=== PATIENT | female | born 1955 | race African-American/Black ===

== ENCOUNTER 2017-05-31 16:25 | Inpatient (IN) | payer OTHER ==
[2017-05-31] MEDS ORDERED: Ibuprofen 800 MG TAB ONE (18:13)
[2017-05-31] MEDS ORDERED: Lidocaine 1% PF 5 ML VIAL ONE (18:13)
[2017-05-31] MEDS ORDERED: cefTRIAXone\\ROCEPHIN 1 GM VIAL ONE (18:13)
[2017-05-31] MEDS ORDERED: Acetaminophen/Codeine 30-300mg Tablet ONE (18:13)
--- NOTE | 2017-05-31 18:17 | RAD ---
TWO VIEWS CHEST 05/31/17 PROVIDED CLINICAL HISTORY: Cough. FINDINGS: Comparison 01/30/13. The cardiac silhouette is mildly enlarged. There is air space disease in the right middle lobe compat ible with pneumonia. The lungs appear otherwise clear. No pleural fluid or pneumothorax apparent. Deg enerative changes are seen involving the spine. IMPRESSION: Right middle lobe air space disease compatible with pneumonia in the appropriate clinical context. Ra diographic followup after treatment is recommended to evaluate for resolution. POS: [facility]
[2017-05-31 18:39] LABS: #Basophils 0.1 thou/uL (0.0-0.2); #Eosinphils 0.2 thou/uL (0.0-0.7); #Lymphocytes 2.4 thou/uL (1.20-3.40); #Monocytes 1.3 thou/uL (0.11-0.59); %Basophils 0.9 % (0.0-1.0); %Eosinophils 1.9 % (0.0-10.0); %Lymphocytes 19.8 % (21.0-51.0); %Monocytes 10.8 % (0.0-10.0); Hematocrit 37.2 % (36.0-47.0); Mean Platelet Volume 7.5 fL (7.4-10.4); Red Blood Cell (RBC) Count 4.33 mill/uL (4.20-5.40); White Blood Cell (WBC) Count 12.1 thou/uL (4.8-10.8)
[2017-05-31 18:51] LABS: Anion Gap 17 mmol/L (10-20); BUN (Urea Nitrogen) 17 mg/dL (9.8-20.1); Calc. Creatinine Clearance 0 mL/min (70-130); Calcium 10.1 mg/dL (7.8-10.44); Carbon Dioxide 27 mmol/L (23-31); Chloride 103 mmol/L (98-107); Estimated GFR-MDRD 86
[2017-05-31] MEDS ORDERED: Azithromycin 500 MG VIAL ONE (20:48)
[2017-05-31] MEDS ORDERED: methylPREDNISolone Sod Succ/PF 125 MG/2 ML VIAL ONE (20:48)
[2017-05-31] MEDS ORDERED: Budesonide 0.5 MG/2 ML NEB ONE (21:20)
[2017-05-31] MEDS ORDERED: Ondansetron ODT 4 MG TAB SL PRN (23:41)
[2017-05-31] MEDS ORDERED: Ondansetron HCl/PF 4 MG/2 ML Vial IVP PRN (23:41)
[2017-05-31] MEDS ORDERED: Sodium Chloride 0.9% 1,000 ML IV SCH (23:41)
[2017-05-31] MEDS ORDERED: HYDROcodone/Acetaminophen 5/325 mg Tablet PO PRN ×2 (23:41)
[2017-05-31] MEDS ORDERED: Acetaminophen 325 MG TAB PO PRN (23:41)
[2017-05-31] MEDS ORDERED: Albuterol Sulfate 2.5 mg/3 ml Neb NEB PRN (23:42)
[2017-05-31 23:47] VITALS: BMI 37.8
[2017-06-01] MEDS ORDERED: Dextrose 5% in Water 1,000 ML IV PRN (03:00)
[2017-06-01] MEDS ORDERED: Acetaminophen 325 MG TAB PO PRN (03:00)
[2017-06-01] MEDS ORDERED: Dextrose 50% Abboject 50 ML SYRINGE SLOW IVP PRN (03:00)
[2017-06-01] MEDS ORDERED: cefTRIAXone\\ROCEPHIN 1 GM in Sodium Chloride 0.9% 100 ML IVPB SCH (03:00)
[2017-06-01] MEDS ORDERED: Bisacodyl 5 MG TAB PO PRN (03:00)
--- NOTE | 2017-06-01 04:02 | HP ---
PRIMARY CARE PHYSICIAN: Rayna Madrid M.D. CHIEF COMPLAINT: Cough. HISTORY OF PRESENT ILLNESS: Ms. Esqueda is a pleasant 62-year-old lady who was seen at [facility] on 06/01/2017 following transfer from [facility]. She reports that about 5 days ago, she developed cough. She reports that the cough is nonproductive. She felt warm 2 days ago. She denies any nausea, vomiting or diarrhea. She denies any sick contac ts. She reports that she has been eating and drinking well. She denies any chest pain. She denies any shortness of breath. She denies any abdominal pain. REVIEW OF SYSTEMS: The following complete review of systems was negative, unless otherwise mentioned in the HPI or below: Constitutional: Weight loss or gain, sense of well-being, ability to conduct usual activities, exerc ise tolerance. Skin/Breast: Rash, itching, changes in hair growth or loss, nail changes, breast lumps, tenderness, swelling, nipple discharge. Eyes: Vision, double vision, tearing, blind spots, pain. ENT/Mouth: Headaches (location, time of onset, duration, precipitating factors), vertigo, lightheade dness, injury. Vision, double vision, tearing, blind spots, pain, nose bleeding, colds, obstruction, discharge, dental difficulties, gingival bleeding, dentures, neck stiffness, pain, tenderness, masses in thyroid or other areas. Cardiovascular: Precordial pain, substernal distress, palpitations, syncope, dyspnea on exertion, or thopnea, nocturnal paroxysmal dyspnea, edema, cyanosis, hypertension, heart murmurs, varicosities, ph lebitis, claudication. Respiratory: Pain, shortness of breath, wheezing, stridor, cough, hemoptysis, fever or night sweats. Gastrointestinal: Poor appetite, dysphagia, indigestion, abdominal pain, heartburn, eructation, naus ea, vomiting, hematemesis, jaundice, constipation, or diarrhea, abnormal stools (patricio-colored, tarry, bloody, greasy, foul smelling), flatulence, hemorrhoids, recent changes in bowel habits. Genitourinary: Urgency, frequency, dysuria, nocturia, hematuria, polyuria, oliguria, unusual (or kiran nge in) color of urine, stones, hesitancy, change in size of stream, dribbling, acute retention or in continence, libido, potency. Musculoskeletal: Pain, swelling, redness or heat of muscles or joints, limitation, of motion, muscul ar weakness, atrophy, cramps. Neurologic/Psychiatric: Convulsions, paralyses, tremor, incoordination, paresthesias, difficulties w ith memory of speech, sensory or motor disturbances, or muscular coordination (ataxia, tremor), emoti onal problems, anxiety, depression, previous psychiatric care, unusual perceptions, hallucinations. Allergy/Immunologic: Skin rash, anemia, bleeding tendency, polydipsia, polyuria, intolerance to heat or cold. PAST MEDICAL HISTORY: Significant for diabetes mellitus, hypertension, and dyslipidemia. PAST SURGICAL HISTORY: Significant for hysterectomy and lumpectomy. SOCIAL HISTORY: The patient denies tobacco use, alcohol use, or recreational drug use. FAMILY HISTORY: Significant for diabetes mellitus, hypertension, and heart disease. ALLERGIES: No known drug allergies. CURRENT MEDICATIONS: Include amlodipine 2.5 mg daily, losartan 25 mg daily, metformin 500 mg 2 times a day, glipizide 2.5 mg daily, and citalopram 10 mg daily. PHYSICAL EXAMINATION: GENERAL: On examination, Ms. Esqueda is awake and alert, not in acute distress. She is obese, with a BMI of 37.8 kilogram per square meter. VITAL SIGNS: She is afebrile. Blood pressure is 137/72. Pulse is 78. She is breathing at rate of 18 and saturating 95% on 2 liters of oxygen. EYES: No scleral icterus, no conjunctival pallor. ENT: Dry mucosal membranes, no oropharyngeal erythema or exudates. NECK: Supple, nontender, normal range of movement, trachea is midline. RESPIRATORY: Accessory muscles of breathing are not active. Chest wall movements are symmetric bila terally. She has bronchial breathing over the right middle lobe. CARDIOVASCULAR: S1 and S2 are heard, regular. Peripheral pulses palpable. No carotid bruit, no per icardial rub. ABDOMEN: Soft, nontender, bowel sounds heard, no hepatomegaly, no splenomegaly. NEUROLOGIC: Cranial nerves II-XII are intact, deep tendon reflexes are 2+. MUSCULOSKELETAL: Power is 5/5 in all 4 extremities. SKIN: No rashes or subcutaneous nodules. LYMPHATIC: No cervical lymphadenopathy. PSYCHIATRIC: Normal mood, normal affect, patient is oriented to person, place, and time. LABORATORY DATA: Ms. Esqueda's labs and investigations were reviewed. She had a chest x-ray, which showed right middle lobe infiltrate. She has leukocytosis with 12,100 white cells, of which 66.5% ar e neutrophils. Hemoglobin and platelet count are normal. Chem-7 is normal. Influenza screen is neg ative. ASSESSMENT AND PLAN: Ms. Esqueda is a pleasant 62-year-old lady who was seen at [facility] on 06/01/2017. Her problem list includes: 1. Acute hypoxic respiratory failure: Ms. Esqueda had oxygen saturation of 88% on room air at [facility]. This is most likely secondary to pneumonia. 2. Community-acquired pneumonia: We will treat Ms. Esqueda with ceftriaxone and azithromycin. 3. Diabetes mellitus. Start Accu-Cheks, insulin sliding scale. 4. Hypertension: Monitor vital signs, titrate antihypertensives as needed. Many thanks for allowing me to participate in your patient's care. Please feel free to contact me wi th any questions or concerns. LEVEL OF RISK: Moderate. LEVEL OF COMPLEXITY: Moderate.
[2017-06-01] MEDS: Sodium Chloride 0.9% 1,000 ML IV SCH ×4 (04:17→20:28)
[2017-06-01] MEDS ORDERED: methylPREDNISolone Sod Succ/PF 125 MG/2 ML VIAL IVP SCH (06:00)
[2017-06-01 06:37] LABS: Anion Gap 14 mmol/L (10-20); BUN (Urea Nitrogen) 18 mg/dL (9.8-20.1); Calc. Creatinine Clearance 112 mL/min (70-130); Calcium 9.7 mg/dL (7.8-10.44); Carbon Dioxide 23 mmol/L (23-31); Chloride 104 mmol/L (98-107); Estimated GFR-MDRD 86
[2017-06-01 06:42] LABS: Hematocrit 34.5 % (36.0-47.0); Mean Platelet Volume 8.1 fL (7.4-10.4); White Blood Cell (WBC) Count 10.2 thou/uL (4.8-10.8)
[2017-06-01] MEDS: Enoxaparin Sodium 40 MG/0.4 ML SYRINGE SC SCH (08:27)
[2017-06-01 08:49] LABS: Band 10 % (5-11); Neutrophil 83 % (42-75)
[2017-06-01] MEDS ORDERED: Lisinopril/Hydrochlorothiazide 20/25 mg Tablet PO SCH (11:00)
[2017-06-01] MEDS ORDERED: NIFEdipine XL 60 MG TAB PO SCH (11:00)
--- NOTE | 2017-06-01 11:05 | PDOC.PN ---
- Subjective Encounter Start Date: 06/01/17 Encounter Start Time: 08:45 Subjective: feels better, still has sob -: is unable to bring up sputum - Objective MAR Reviewed: Yes Vital Signs & Weight: Vital Signs (12 hours) Temp Pulse Resp BP Pulse Ox 06/01/17 08:21 96.6 F L 78 16 182/88 H 93 L 06/01/17 07:40 96.6 F L 78 16 06/01/17 05:10 96.4 F L 74 16 162/70 H 94 L 05/31/17 23:59 98.5 F 78 18 05/31/17 23:46 98.5 F 78 18 137/72 95 Weight Weight 220 lb I&O: 05/31/17 06/01/17 06/02/17 06:59 06:59 06:59 Intake Total 1999 Balance 1999 Result Diagrams: 06/01/17 05:33 06/01/17 05:33 Additional Labs: Accuchecks 06/01/17 05:55 POC Glucose 238 H Phys Exam - Physical Examination HEENT: PERRLA, moist MMs Neck: no JVD, supple Respiratory: no wheezing, no rales rhonchi+ Cardiovascular: RRR, no significant murmur Gastrointestinal: soft, non-tender, positive bowel sounds Musculoskeletal: no edema, pulses present Neurological: non-focal, moves all 4 limbs Psychiatric: A&O x 3 Dx/Plan (1) PNA (pneumonia) Code(s): J18.9 - PNEUMONIA, UNSPECIFIED ORGANISM Status: Acute Qualifiers: Pneumonia type: due to unspecified organism Laterality: right Lung location: middle lobe of lung Qualified Code(s): J18.1 - Lobar pneumonia, unspecified organism (2) HTN (hypertension) Code(s): I10 - ESSENTIAL (PRIMARY) HYPERTENSION Status: Acute Comment: uncontrolled (3) Obesity (BMI 30-39.9) Code(s): E66.9 - OBESITY, UNSPECIFIED Status: Chronic (4) Dyslipidemia Code(s): E78.5 - HYPERLIPIDEMIA, UNSPECIFIED Status: Chronic (5) Acute respiratory failure with hypoxia Code(s): J96.01 - ACUTE RESPIRATORY FAILURE WITH HYPOXIA Status: Acute Comment: on nasal canula, resolving (6) DM type 2 (diabetes mellitus, type 2) Status: Chronic Qualifiers: Diabetes mellitus complication status: with unspecified complications Diabetes mellitus laborer marine terminal insulin use: without laborer marine terminal use Qualified Code( s): E11.8 - Type 2 diabetes mellitus with unspecified complications - Plan on azithro and ceftriaxone -: nebs, gentle iv hydration -: home meds to chart, will start procardia and lisino/hctz for now -: to amb in hallway as tolerated -: change status to inpt * . Review of Systems - Medications/Allergies Allergies/Adverse Reactions: Allergies Allergy/AdvReac Type Severity Reaction Status Date / Time No Known Allergies Allergy Verified 01/25/13 23:35 Medications: Current Medications Acetaminophen (Tylenol) 650 mg PO Q4H PRN PRN Reason: Headache/Fever or Pain Albuterol Sulfate (Ventolin) 2.5 mg NEB [id number] [facility] Aspirin (Ecotrin) 325 mg PO DAILY JOHN Bisacodyl (Dulcolax) 10 mg PO DAILYPRN PRN PRN Reason: Constipation Dextrose/Water (Dextrose 50%) 25 gm SLOW IVP PRN PRN PRN Reason: Hypoglycemia Enoxaparin Sodium (Lovenox) 40 mg SC 0900 [facility] Last Admin: 06/01/17 08:27 Dose: 40 mg Glucagon (Glucagon) 1 mg IM PRN PRN PRN Reason: Hypoglycemia Lisinopril/HCTZ (Prinizide 20-25) 1 tab PO DAILY [facility] Lisinopril/HCTZ (Prinizide 20-25) 1 tab PO ONE STA Stop: 06/01/17 11:01 Azithromycin 500 mg/ Sodium (Chloride) 250 mls @ 250 mls/hr IVPB Q24HR [facility] Dextrose/Water (D5w) 1,000 mls @ 0 mls/hr IV .Q0M PRN; As Directed PRN Reason: Hypoglycemia Sodium Chloride (Normal Saline 0.9%) 1,000 mls @ 75 mls/hr IV .[id number] [facility] Last Admin: 06/01/17 05:33 Dose: 1,000 mls Ceftriaxone Sodium 1 gm/ (Syringe 0.4 ml/ Sterile Water) 10 mls @ 120 mls/hr SLOW IVP 1800 JOHN Insulin Human Lispro (Humalog) 0 units SC .MILD SLIDING SCALE PRN PRN Reason: Mild Correctional Scale Nifedipine (Procardia Xl) 60 mg PO DAILY JOHN Nifedipine (Procardia Xl) 60 mg PO ONE STA Stop: 06/01/17 11:01 Non-Formulary Medication (Metformin Hcl) 500 mg PO DAILY [facility]
[2017-06-01] MEDS: HumaLOG 300 UNITS/3 ML VIAL SC PRN ×2 (11:49→17:21)
[2017-06-01] MEDS: Albuterol Sulfate 2.5 mg/3 ml Neb NEB SCH ×2 (13:31→18:18)
[2017-06-01] MEDS ORDERED: Insulin Detemir 100 UNITS/ML 15 UNITS in Pre-Filled Syringe 1 EACH SC SCH (14:54)
[2017-06-01] MEDS: cefTRIAXone\\ROCEPHIN 1 GM, Syringe 0.4 ML in Sterile Water 9.6 ML SLOW IVP SCH (17:47)
[2017-06-01] MEDS: Azithromycin 500 MG in Sodium Chloride 0.9% 250 ML 250 ML IVPB SCH (20:28)
[2017-06-02] MEDS: Albuterol Sulfate 2.5 mg/3 ml Neb NEB SCH ×4 (00:34→18:29)
[2017-06-02 05:45] LABS: #Monocytes 1.2 thou/uL (0.11-0.59); #Neutrophils 11.7 thou/uL (1.40-6.50); %Basophils 0.1 % (0.0-1.0); %Eosinophils 0.3 % (0.0-10.0); %Lymphocytes 13.2 % (21.0-51.0); %Monocytes 8.2 % (0.0-10.0); Hematocrit 33.6 % (36.0-47.0); Mean Platelet Volume 7.9 fL (7.4-10.4)
[2017-06-02 06:03] LABS: Anion Gap 12 mmol/L (10-20); BUN (Urea Nitrogen) 17 mg/dL (9.8-20.1); Calc. Creatinine Clearance 128 mL/min (70-130); Calcium 9.3 mg/dL (7.8-10.44); Carbon Dioxide 25 mmol/L (23-31); Chloride 106 mmol/L (98-107); Estimated GFR-MDRD Greater than 90
[2017-06-02] MEDS ORDERED: metFORMIN 500 MG TAB PO SCH (08:00)
[2017-06-02] MEDS: Enoxaparin Sodium 40 MG/0.4 ML SYRINGE SC SCH (08:16)
[2017-06-02] MEDS ORDERED: Losartan Potassium 25 MG TAB PO SCH ×2 (09:00)
[2017-06-02] MEDS ORDERED: NIFEdipine XL 60 MG TAB PO SCH (09:00)
[2017-06-02] MEDS ORDERED: Fluticasone Propionate Nasal Spray 16 gm Bottle NASAL SCH (09:00)
[2017-06-02] MEDS ORDERED: Lisinopril/Hydrochlorothiazide 20/25 mg Tablet PO SCH (09:00)
[2017-06-02] MEDS ORDERED: Aspirin 325 mg Enteric Coated Tablet PO SCH (09:00)
--- NOTE | 2017-06-02 13:01 | PDOC.PN ---
- Subjective Encounter Start Date: 06/02/17 Encounter Start Time: 09:40 Subjective: feels better -: no sob -: is amb in room - Objective MAR Reviewed: Yes Vital Signs & Weight: Vital Signs (12 hours) Temp Pulse Resp BP BP Pulse Ox 06/02/17 12:50 76 14 95 06/02/17 09:16 97.6 F 69 16 143/80 H 92 L 06/02/17 08:15 73 143/80 H 06/02/17 08:00 97.6 F 69 16 143/80 H 92 L 06/02/17 06:43 73 12 99 06/02/17 03:31 97.9 F 70 16 132/65 96 Weight Weight 220 lb I&O: 06/01/17 06/02/17 06/03/17 06:59 06:59 06:59 Intake Total 1999 3599 Balance 1999 3599 Result Diagrams: 06/02/17 04:48 06/02/17 04:48 Additional Labs: Accuchecks 06/02/17 06/01/17 06/01/17 06:09 20:11 15:47 POC Glucose 153 H 313 H 258 H Phys Exam - Physical Examination HEENT: PERRLA, moist MMs Neck: no JVD, supple Respiratory: no wheezing, no rales Cardiovascular: RRR, no significant murmur Gastrointestinal: soft, non-tender, positive bowel sounds Musculoskeletal: no edema, pulses present Neurological: non-focal, moves all 4 limbs Psychiatric: A&O x 3 Dx/Plan (1) PNA (pneumonia) Code(s): J18.9 - PNEUMONIA, UNSPECIFIED ORGANISM Status: Acute Qualifiers: Pneumonia type: due to unspecified organism Laterality: right Lung location: middle lobe of lung Qualified Code(s): J18.1 - Lobar pneumonia, unspecified organism (2) HTN (hypertension) Code(s): I10 - ESSENTIAL (PRIMARY) HYPERTENSION Status: Acute Qualifiers: Hypertension type: essential hypertension Qualified Code(s): I10 - Essential (primary) hypertension (3) Obesity (BMI 30-39.9) Code(s): E66.9 - OBESITY, UNSPECIFIED Status: Chronic (4) Dyslipidemia Code(s): E78.5 - HYPERLIPIDEMIA, UNSPECIFIED Status: Chronic (5) Acute respiratory failure with hypoxia Code(s): J96.01 - ACUTE RESPIRATORY FAILURE WITH HYPOXIA Status: Resolved Comment: resolving (6) DM type 2 (diabetes mellitus, type 2) Status: Chronic Qualifiers: Diabetes mellitus complication status: with unspecified complications Diabetes mellitus nursing home insulin use: without terminal make up operator use Qualified Code( s): E11.8 - Type 2 diabetes mellitus with unspecified complications - Plan is on zithromax and rocephin -: nebs prn -: htn is stabilizing on current meds -: dc plan in am * . Review of Systems - Medications/Allergies Allergies/Adverse Reactions: Allergies Allergy/AdvReac Type Severity Reaction Status Date / Time No Known Allergies Allergy Verified 01/25/13 23:35 Medications: Current Medications Acetaminophen (Tylenol) 650 mg PO Q4H PRN PRN Reason: Headache/Fever or Pain Last Admin: 06/01/17 20:28 Dose: 650 mg Albuterol Sulfate (Ventolin) 2.5 mg NEB [id number] [facility] Last Admin: 06/02/17 12:50 Dose: 2.5 mg Aspirin (Ecotrin) 325 mg PO DAILY [facility] Last Admin: 06/02/17 08:15 Dose: 325 mg Bisacodyl (Dulcolax) 10 mg PO DAILYPRN PRN PRN Reason: Constipation Dextrose/Water (Dextrose 50%) 25 gm SLOW IVP PRN PRN PRN Reason: Hypoglycemia Duloxetine HCl (Cymbalta) 20 mg PO DAILY [facility] Last Admin: 06/02/17 08:16 Dose: 20 mg Enoxaparin Sodium (Lovenox) 40 mg SC 0900 [facility] Last Admin: 06/02/17 08:16 Dose: 40 mg Fluticasone Propionate (Flonase Nasal [place]) 0 gm NASAL DAILY [facility] Glipizide (Glucotrol Xl) 2.5 mg PO DAILY [facility] Last Admin: 06/02/17 08:15 Dose: 2.5 mg Glucagon (Glucagon) 1 mg IM PRN PRN PRN Reason: Hypoglycemia Azithromycin 500 mg/ Sodium (Chloride) 250 mls @ 250 mls/hr IVPB Q24HR [facility] Last Admin: 06/01/17 20:28 Dose: 250 mls Dextrose/Water (D5w) 1,000 mls @ 0 mls/hr IV .Q0M PRN; As Directed PRN Reason: Hypoglycemia Sodium Chloride (Normal Saline 0.9%) 1,000 mls @ 75 mls/hr IV .[id number] [facility] Last Admin: 06/01/17 20:28 Dose: 1,000 mls Ceftriaxone Sodium 1 gm/ (Syringe 0.4 ml/ Sterile Water) 10 mls @ 120 mls/hr SLOW IVP 1800 JOHN Last Admin: 06/01/17 17:47 Dose: 10 mls Insulin Human Lispro (Humalog) 0 units SC .MILD SLIDING SCALE PRN PRN Reason: Mild Correctional Scale Last Admin: 06/01/17 17:21 Dose: 6 unit Losartan Potassium (Cozaar) 25 mg PO DAILY [facility] Last Admin: 06/02/17 08:15 Dose: 25 mg Losartan Potassium (Cozaar) 25 mg PO DAILY [facility] Metformin HCl (Glucophage) 500 mg PO QAM-WM [facility] Last Admin: 06/02/17 08:15 Dose: 500 mg Nifedipine (Procardia Xl) 60 mg PO DAILY [facility] Last Admin: 06/02/17 08:15 Dose: 60 mg
[2017-06-02] MEDS: HumaLOG 300 UNITS/3 ML VIAL SC PRN ×3 (13:48→23:14)
[2017-06-02] MEDS: cefTRIAXone\\ROCEPHIN 1 GM, Syringe 0.4 ML in Sterile Water 9.6 ML SLOW IVP SCH (17:27)
[2017-06-02] MEDS: Azithromycin 500 MG in Sodium Chloride 0.9% 250 ML 250 ML IVPB SCH (21:06)
[2017-06-03] MEDS: Albuterol Sulfate 2.5 mg/3 ml Neb NEB SCH ×2 (01:51→08:11)
[2017-06-03 05:17] LABS: #Basophils 0.1 thou/uL (0.0-0.2); #Eosinphils 0.1 thou/uL (0.0-0.7); #Lymphocytes 3.4 thou/uL (1.20-3.40); #Neutrophils 7.5 thou/uL (1.40-6.50); %Basophils 0.8 % (0.0-1.0); %Eosinophils 0.9 % (0.0-10.0); %Lymphocytes 28.2 % (21.0-51.0); %Monocytes 8.1 % (0.0-10.0); Hematocrit 35.7 % (36.0-47.0); Mean Platelet Volume 8.1 fL (7.4-10.4); Red Blood Cell (RBC) Count 4.15 mill/uL (4.20-5.40); White Blood Cell (WBC) Count 12.2 thou/uL (4.8-10.8)
[2017-06-03 05:42] LABS: Anion Gap 11 mmol/L (10-20); BUN (Urea Nitrogen) 14 mg/dL (9.8-20.1); Calc. Creatinine Clearance 130 mL/min (70-130); Calcium 9.2 mg/dL (7.8-10.44); Carbon Dioxide 26 mmol/L (23-31); Chloride 104 mmol/L (98-107); Estimated GFR-MDRD Greater than 90
[2017-06-03 08:58] VITALS: BP 147/81
[2017-06-03 09:47] VITALS: TEMP 98
--- NOTE | 2017-06-03 11:09 | PDOC.PN ---
- Subjective Encounter Start Date: 06/03/17 Encounter Start Time: 08:50 Subjective: feels better, is amb in room -: eating well - Objective MAR Reviewed: Yes Vital Signs & Weight: Vital Signs (12 hours) Temp Pulse Resp BP Pulse Ox 06/03/17 08:15 96 06/03/17 08:11 72 20 96 06/03/17 08:00 98.0 F 70 16 147/81 H 94 L 06/03/17 02:49 93 L 06/03/17 01:51 12 06/03/17 00:40 97.6 F 74 22 H 114/69 95 Weight Weight 220 lb I&O: 06/02/17 06/03/17 06/04/17 06:59 06:59 06:59 Intake Total 3599 2049 Balance 3599 2049 Result Diagrams: 06/03/17 04:40 06/03/17 04:40 Additional Labs: Accuchecks 06/03/17 06/02/17 06/02/17 04:40 23:11 20:26 POC Glucose 130 H 185 H 238 H 06/02/17 06/02/17 15:08 11:18 POC Glucose 194 H 171 H Phys Exam - Physical Examination HEENT: PERRLA, moist MMs Neck: no JVD, supple Respiratory: no wheezing, no rales Cardiovascular: RRR, no significant murmur Gastrointestinal: soft, non-tender, positive bowel sounds Musculoskeletal: no edema, pulses present Neurological: non-focal, moves all 4 limbs Psychiatric: A&O x 3 Dx/Plan (1) PNA (pneumonia) Code(s): J18.9 - PNEUMONIA, UNSPECIFIED ORGANISM Status: Acute Qualifiers: Pneumonia type: due to unspecified organism Laterality: right Lung location: middle lobe of lung Qualified Code(s): J18.1 - Lobar pneumonia, unspecified organism (2) HTN (hypertension) Code(s): I10 - ESSENTIAL (PRIMARY) HYPERTENSION Status: Acute Qualifiers: Hypertension type: essential hypertension Qualified Code(s): I10 - Essential (primary) hypertension (3) Obesity (BMI 30-39.9) Code(s): E66.9 - OBESITY, UNSPECIFIED Status: Chronic (4) Dyslipidemia Code(s): E78.5 - HYPERLIPIDEMIA, UNSPECIFIED Status: Chronic (5) Acute respiratory failure with hypoxia Code(s): J96.01 - ACUTE RESPIRATORY FAILURE WITH HYPOXIA Status: Resolved Comment: resolving (6) DM type 2 (diabetes mellitus, type 2) Status: Chronic Qualifiers: Diabetes mellitus complication status: with unspecified complications Diabetes mellitus termite helper insulin use: without termite helper use Qualified Code( s): E11.8 - Type 2 diabetes mellitus with unspecified complications - Plan hemostable -: dc pt home -: levaquin for 1 week -: to f/u with her pcp in 1 week. * .
--- NOTE | 2017-06-03 19:18 | DIS ---
DATE OF ADMISSION: 05/31/2017 DATE OF DISCHARGE: 06/03/2017 DISCHARGE DISPOSITION: To home. PRIMARY DISCHARGE DIAGNOSIS: Right middle lobe pneumonia. SECONDARY DISCHARGE DIAGNOSES: Hypertension, obesity, dyslipidemia, acute respiratory failure with h ypoxia on arrival resolved due to pneumonia, diabetes mellitus type 2. PROCEDURES DONE DURING HOSPITALIZATION: Chest x-ray done which showed right middle lobe pneumonia. Blood cultures x2 no growth. Respiratory virus panel and PCR were negative for all viruses. DISCHARGE MEDICATIONS: Levaquin 500 mg p.o. daily for another 7 days, albuterol inhaler q.6 hourly p .r.n., aspirin 325 mg p.o. daily, Cymbalta 20 mg p.o. daily, glipizide extended release 2.5 mg p.o. d aily, losartan 25 mg p.o. daily, metformin extended release as before, Procardia-XL 60 mg p.o. daily. ALLERGIES: No known drug allergies. DISCHARGE PLAN: Patient to follow up with her primary care physician in 1 week. BRIEF COURSE DURING HOSPITALIZATION: Patient initially came in with complaints of cough with fever. Her initial x-ray was confirmed right middle lobe pneumonia. The patient was placed on IV antibioti cs. Also patient was hypoxic on arrival and was placed on nasal cannula oxygen 2 liters and her satu rations came up to 95%. She has done remarkably well during her brief stay here. Her hypertension w as uncontrolled and Procardia-XL has been added to her current medication list. She needs to continu e Levaquin for another 7 days and follow up with her primary care physician in 1 week with repeat x-r ay to see for complete resolution of her pneumonia. She is otherwise hemodynamically stable and will be shortly discharged home. Please see a face to face documentation on [facility] for the day of disc harge.
== END 2017-06-03 10:16 | disposition home or self-care (01) | DRG 193 ==
LOC: SCSER 16:25 → OBSVTOIN 20:57 → SURG B 20:57
PROVIDERS: ADMIT Internal Medicine; ATTEND Internal Medicine
DX: J18.1 Lobar pneumonia, unspecified organism (principal); J96.01 Acute respiratory failure with hypoxia; I10 Essential (primary) hypertension; E11.9 Type 2 diabetes mellitus without complications; E78.5 Hyperlipidemia, unspecified; E66.9 Obesity, unspecified; Z68.37 Body mass index [BMI] 37.0-37.9, adult
CPT/HCPCS: 36415; 36416; 71020; 80048; 85025; 87040; 87633; 94640; 94760; A4216; J0456; J0696; J1650; J1815; J2001; J2930; J7050; J7611; J7620; J7626

== ENCOUNTER 2018-03-20 07:42 | Outpatient (CLI) | payer BC ==
--- NOTE | 2018-03-20 09:21 | RAD ---
ABDOMEN ONE VIEW: History: 62-year-old female with history of renal calculi. FINDINGS: There is a 0.9 x 1.4 cm diameter calculus overlying the left kidney, presumably a left renal calculus . There are some degenerative changes of the lumbar spine. There is no evidence of large or small bow el obstruction. No evidence for ureteral calculus. IMPRESSION: Left renal calculus. POS: [facility]
== END 2018-03-20 07:43 | disposition home or self-care (01) ==
LOC: RAD 07:42
PROVIDERS: ATTEND Urology
DX: R10.2 Pelvic and perineal pain (principal); N20.0 Calculus of kidney
CPT/HCPCS: 74018

== ENCOUNTER 2019-01-24 12:38 | Outpatient (CLI) | payer BC ==
--- NOTE | 2019-01-24 12:56 | RAD ---
Exam: XR Knee Rt 4 View STANDARD HISTORY: Anterior right knee pain. More severe over past week. COMPARISON: None FINDINGS: Mild tricompartment osteophytosis is present. There is no significant joint space narrowing. No acute fracture, dislocation, or other acute osseous abnormality is identified. IMPRESSION: Mild osteoarthritis without evidence of an acute osseous abnormality.
== END 2019-01-24 12:39 | disposition home or self-care (01) ==
LOC: SCSRAD 12:38
PROVIDERS: ATTEND Family Medicine
DX: M25.561 Pain in right knee (principal); M17.11 Unilateral primary osteoarthritis, right knee

== ENCOUNTER 2019-02-14 14:10 | Outpatient (CLI) | payer BC ==
--- NOTE | 2019-02-14 15:32 | MMO ---
Bilateral MAMMO Bilat Screen [facility]. CLINICAL HISTORY: Patient is 63 years old and is seen for screening. The patient has no family history of breast cancer. The patient has no personal history of cancer. VIEWS: The views performed were: bilateral craniocaudal with tomosynthesis and bilateral mediolateral oblique with tomosynthesis. FILMS COMPARED: The present examination has been compared to a prior imaging study performed at [facility] on 01/25/2018. MAMMOGRAM FINDINGS: There are scattered fibroglandular densities. There are benign appearing calcifications seen in both breasts. There are no suspicious masses, suspicious calcifications, or new areas of architectural distortion. IMPRESSION: THERE IS NO MAMMOGRAPHIC EVIDENCE OF MALIGNANCY. A ROUTINE FOLLOW-UP MAMMOGRAM IN 1 YEAR IS RECOMMENDED. THE RESULTS OF THIS EXAM WERE SENT TO THE PATIENT. ACR BI-RADS Category 2 - Benign finding MAMMOGRAPHY NOTE: 1. A negative mammogram report should not delay a biopsy if a dominant of clinically suspicious mass is present. 2. Approximately 10% to 15% of breast cancers are not detected by mammography. 3. Adenosis and dense breasts may obscure an underlying neoplasm. Reported by: OSIEL WALTERS MD Electonically Signed: [id number]
== END 2019-02-14 14:11 | disposition home or self-care (01) ==
LOC: BICMAMMO 14:10
PROVIDERS: ATTEND Family Medicine
DX: Z12.31 Encounter for screening mammogram for malignant neoplasm of breast (principal)
CPT/HCPCS: 77063; 77067

== ENCOUNTER 2019-03-26 14:37 | Outpatient (CLI) | payer BC ==
--- NOTE | 2019-03-26 14:58 | RAD ---
KUB: 03/26/2019 HISTORY: Kidney stone. COMPARISON: 03/20/2008 FINDINGS: There is a calcification in the left upper quadrant inferior to the 12th rib, measuring 1.9 x 0.9 cm, suggesting a prominent left renal calculus. This appears larger than on the prior KUB, at which time this calcification measured approximately 1.5 x 1.0 cm. The bowel gas pattern is nonobstructed. IMPRESSION: Left renal calculus, enlarged since the prior examination. POS: [facility]
== END 2019-03-26 14:38 | disposition home or self-care (01) ==
LOC: BICRAD 14:37
PROVIDERS: ATTEND Urology
DX: N20.0 Calculus of kidney (principal)
CPT/HCPCS: 74018

== ENCOUNTER 2019-04-09 09:19 | Outpatient (CLI) | payer BC ==
[2019-04-09 12:22] LABS: Bilirubin Negative (Negative); Blood, Urine Negative (Negative); Glucose, Urine (Dipstick) Negative (Negative); Leukocyte Trace (Negative); Nitrite Negative (Negative); Protein, Urine (Dipstick) 30 mg/dL (Neg-Trace); Urobilinogen 0.2 mg/dL (Less than 2)
[2019-04-09 12:26] LABS: INR-International Normal Ratio 0.9; PTT 29.3 SEC (22.9-36.1); Prothrombin Time 12.6 SEC (12.0-14.7)
[2019-04-09 12:27] LABS: Hemoglobin 11.5 g/dL (12.0-16.0); Mean Corpuscular HGB CONC 33.8 g/dL (32.0-36.0); Mean Corpuscular Hemoglobin 28.6 pg (27.0-31.0); Mean Corpuscular Volume 84.6 fL (78.0-98.0); Mean Platelet Volume 8.5 fL (7.4-10.4); Platelet Count 375 thou/uL (130-400); RBC Distribution Width 14.1 % (11.5-14.5); Red Blood Cell (RBC) Count 4.03 mill/uL (4.20-5.40); White Blood Cell (WBC) Count 10.1 thou/uL (4.8-10.8)
[2019-04-09 12:32] LABS: Clarity Clear (Clear)
[2019-04-09 12:33] LABS: RBC/HPF 0-3 HPF (0-3)
[2019-04-09 12:37] LABS: Anion Gap 14 mmol/L (10-20); BUN (Urea Nitrogen) 26 mg/dL (9.8-20.1); Calc. Creatinine Clearance 0 mL/min (70-130); Carbon Dioxide 23 mmol/L (23-31); Chloride 108 mmol/L (98-107); Estimated GFR-MDRD 70; Glucose 152 mg/dL (80-115); Potassium 4.5 mmol/L (3.5-5.1); Sodium 140 mmol/L (136-145)
[2019-04-09 12:42] LABS: Bacteria/HPF 1+ HPF (None Seen)
--- NOTE | 2019-04-09 17:00 | EKG ---
Test Reason : Blood Pressure : / mmHG Vent. Rate : 064 BPM Atrial Rate : 064 BPM P-R Int : 146 ms QRS Dur : 084 ms QT Int : 398 ms P-R-T Axes : 052 008 023 degrees QTc Int : 410 ms Normal sinus rhythm Possible Anterior infarct , age undetermined Abnormal ECG Confirmed by BELGICA REA ([id number]) on 04/09/2019 4:59:57 PM Referred By: RAND Confirmed By:BELGICA REA
== END 2019-04-09 09:20 | disposition home or self-care (01) ==
LOC: LABBT 09:19
PROVIDERS: ATTEND Urology
DX: Z01.818 Encounter for other preprocedural examination (principal); N20.0 Calculus of kidney
CPT/HCPCS: 80048; 81001; 85027; 85610; 85730; 87086; 93005; 93010

== ENCOUNTER 2019-04-15 09:15 | Day surgery (SDC) | payer BC ==
[2019-04-09 09:45] VITALS: BMI 38.2
[2019-04-15] MEDS ORDERED: Levofloxacin 500 mg/D5W 100 ml Premix Bag ONE (09:20)
[2019-04-15] MEDS ORDERED: Midazolam HCl 2 mg/2 ml Vial ONE (10:10)
[2019-04-15] MEDS ORDERED: Fentanyl 100 MCG/2 ML VIAL ONE (10:10)
[2019-04-15] MEDS ORDERED: Iothalamate Meglumine 60% 50 ML VIAL FS ONE (10:10)
[2019-04-15] MEDS ORDERED: Oxybutynin 5 MG TAB ONE (11:38)
[2019-04-15] MEDS ORDERED: Ketorolac Tromethamine 30 MG/ML VIAL ONE (11:38)
[2019-04-15] MEDS ORDERED: Phenazopyridine HCl 97.5 MG TABLET ONE (11:38)
--- NOTE | 2019-04-15 12:23 | OP ---
DATE OF PROCEDURE: 04/15/2019 PREOPERATIVE DIAGNOSIS: Left renal stone. POSTOPERATIVE DIAGNOSIS: Left renal stone. PROCEDURES PERFORMED: 1. Left ureteroscopy with laser lithotripsy. 2. Basket extraction of stone. 3. A 6 x 24 double-J ureteral stent placement. ANESTHESIA: General. COMPLICATIONS: None. ESTIMATED BLOOD LOSS: Minimal. SPECIMEN: Stone fragments. DESCRIPTION OF PROCEDURE: After informed consent, the patient was taken to the operating room and transferred to the table on her own power. Anesthesia was established. A time-out was performed, ensuring correct patient, site, and procedure. She was prepped and draped in the lithotomy position. I then passed the rigid cystoscope through the urethra into the bladder. The bladder was systematically examined, noting no mucosal abnormalities. The left ureteral orifice was cannulated with a wire, which was passed up to the level of the renal pelvis under fluoroscopic guidance. I then switched to the access sheath and placed this over the wire into the proximal ureter under fluoroscopic guidance. A retrograde pyelogram was performed through this, showing good filling of the kidney other than the large filling defect, compatible with the calcifications seen on fluoroscopy in the renal pelvis. The flexible ureteroscope was then passed through the access sheath into the renal pelvis, where the stone was quickly identified. A 200 micron laser fiber was utilized to fragment the stone into small pieces. All clinically significant stone fragments were removed with the Nitinol basket. At completion, retrograde was performed, showing no further filling defect and no calcifications visible on fluoroscopy. The wire was then replaced and the scope and access sheath withdrawn. A 6 x 24 double-J ureteral stent was placed over the wire with a curl in the kidney and curl in the bladder. The case was then completed. The patient was awoken from anesthesia, transferred back to her hospital bed, and taken to PACU in stable condition, where she will discharge home upon recovery. Job ID: [id number]
[2019-04-15] MEDS ORDERED: Ondansetron PF 4 MG/2 ML Vial ONE (12:31)
[2019-04-15] MEDS ORDERED: PROPOFOL 200 MG/20 ML VIAL ONE (12:31)
== END 2019-04-15 13:05 | disposition home or self-care (01) ==
LOC: SDC 09:15
PROVIDERS: ATTEND Urology
PROC: 0T778DZ Dilation of Left Ureter with Intraluminal Device, Via Natural or Artificial Opening Endoscopic (ICD-10-PCS; principal; 2019-04-15)
PROC: 0TF48ZZ Fragmentation in Left Kidney Pelvis, Via Natural or Artificial Opening Endoscopic (ICD-10-PCS; principal; 2019-04-15)
DX: N20.0 Calculus of kidney (principal); N32.81 Overactive bladder; E11.9 Type 2 diabetes mellitus without complications; I10 Essential (primary) hypertension; E78.5 Hyperlipidemia, unspecified; Z88.5 Allergy status to narcotic agent; Z88.6 Allergy status to analgesic agent; Z79.84 Long term (current) use of oral hypoglycemic drugs; Z79.899 Other long term (current) drug therapy
CPT/HCPCS: 76000; 82365; 88300; C1769; J1885; J1956; J2250; J2405; J2704; J3010

== ENCOUNTER 2019-08-04 12:38 | Outpatient (CLI) | payer MEDICARE ==
--- NOTE | 2019-08-04 13:05 | ULT ---
RENAL ULTRASOUND HISTORY: History of renal calculus COMPARISON: CT abdomen pelvis without contrast dated February 17, 2017 FINDINGS: Right Kidney: Size: 10.5 x 4.8 x 4.4 cm. Abnormality: There is a small 1.2 cm cyst involving the anterior aspect of the mid right kidney. Ther e is a 1.2 cm cyst involving inferior pole of the right kidney. Left Kidney: Size: 9.5 x 4.8 x 5.5 cm. Abnormality: There is a 9 mm stone involving the inferior pole left kidney. Urinary bladder: Normal mucosa. IMPRESSION: 1. Right renal cysts. 2. Left nephrolithiasis. 3. No hydronephrosis
== END 2019-08-04 12:39 | disposition home or self-care (01) ==
LOC: SCSULT 12:38
PROVIDERS: ATTEND Urology
DX: N20.0 Calculus of kidney (principal); N28.1 Cyst of kidney, acquired
CPT/HCPCS: 76770

== ENCOUNTER 2019-08-13 19:30 | Outpatient (CLI) | payer MEDICARE | END 2019-08-13 19:31 | disposition home or self-care (01) | LOC: SLEEPLAB 19:30 | PROVIDERS: ATTEND Family Medicine | DX: G47.33 Obstructive sleep apnea (adult) (pediatric) (principal); R06.83 Snoring; R53.83 Other fatigue; F41.9 Anxiety disorder, unspecified; F32.9 Major depressive disorder, single episode, unspecified; R35.1 Nocturia; I10 Essential (primary) hypertension; E11.9 Type 2 diabetes mellitus without complications; R51 Headache; E66.9 Obesity, unspecified; Z68.38 Body mass index [BMI] 38.0-38.9, adult | CPT/HCPCS: 95811 ==

== ENCOUNTER 2020-02-17 15:53 | Outpatient (CLI) | payer MEDICARE, OTHER ==
--- NOTE | 2020-02-17 16:48 | MMO ---
Bilateral MAMMO Bilat Screen [facility]. CLINICAL HISTORY: Patient is 64 years old and is seen for screening. The patient has no family history of breast cancer. The patient has no personal history of cancer. VIEWS: The views performed were: bilateral craniocaudal with tomosynthesis and bilateral mediolateral oblique with tomosynthesis. FILMS COMPARED: The present examination has been compared to prior imaging studies performed at [facility] on 01/25/2018 and 02/14/2019. This study has been interpreted with the assistance of computer-aided detection. MAMMOGRAM FINDINGS: There are scattered fibroglandular densities. Benign calcifications are noted bilaterally. Nodularity is stable. There are no suspicious masses, suspicious calcifications, or new areas of architectural distortion. IMPRESSION: THERE IS NO MAMMOGRAPHIC EVIDENCE OF MALIGNANCY. A ROUTINE FOLLOW-UP MAMMOGRAM IN 1 YEAR IS RECOMMENDED. THE RESULTS OF THIS EXAM WERE SENT TO THE PATIENT. ACR BI-RADS Category 2 - Benign finding MAMMOGRAPHY NOTE: 1. A negative mammogram report should not delay a biopsy if a dominant of clinically suspicious mass is present. 2. Approximately 10% to 15% of breast cancers are not detected by mammography. 3. Adenosis and dense breasts may obscure an underlying neoplasm. Reported by: POONAM REESE MD Electonically Signed: [id number]
== END 2020-02-17 15:54 | disposition home or self-care (01) ==
LOC: BICMAMMO 15:53
PROVIDERS: ATTEND Family Medicine
DX: Z12.31 Encounter for screening mammogram for malignant neoplasm of breast (principal)
CPT/HCPCS: 77063; 77067

== ENCOUNTER 2020-03-23 15:14 | Outpatient (CLI) | payer MEDICARE ==
--- NOTE | 2020-03-23 15:43 | BD ---
EXAM: Bone densitometry using DEXA HISTORY: 64 yo female. Screening for postmenopausal osteoporosis FINDINGS: L1--bone mineral density 1.274 g/sq cm; T score 2.6 ; Z score 3.5 L2--bone mineral density 1.253 g/sq cm; T score 2.0 ; Z score 3.1 L3--bone mineral density 1.238 g/sq cm; T score 1.4 ; Z score 2.5 L4--bone mineral density 1.119 g/sq cm; T score 0.5 ; Z score 1.7 Total L1-L4--bone mineral density 1.215 g/sq cm; T score 1.5 ; Z score 2.6 Left femoral neck--bone mineral density0.942; T score 0.8 ; Z score 1.2 Total proximal left femur--bone mineral density 1.195; T score 2.1 ; Z score 2.0 IMPRESSION: Normal BMD
== END 2020-03-23 15:15 | disposition home or self-care (01) ==
LOC: BICMAMMO 15:14
PROVIDERS: ATTEND Family Medicine
DX: Z13.820 Encounter for screening for osteoporosis (principal); Z78.0 Asymptomatic menopausal state
CPT/HCPCS: 77080

== ENCOUNTER 2020-05-18 08:38 | Outpatient (CLI) | payer MEDICARE ==
--- NOTE | 2020-05-18 11:25 | MRI ---
MRI CERVICAL SPINE WITHOUT CONTRAST: Date: 05/18/2020 INDICATION: Cervical radiculopathy. FINDINGS: There are moderately severe degenerative changes of the cervical spine. There are osteophytes seen an teriorly and laterally from the cervical vertebra. Degenerative disc changes at all levels of the cer vical spine. There is loss of height of the C3-C4 vertebra with anterior wedging at C5 and C6. These changes appear chronic. There is no evidence of vertebral body edema and therefore no evidence of acu te compression injury or fracture. C2-3: Mild posterior disc bulge. No central canal or foraminal stenosis. C3-4: Posterior disc bulge and spondylosis abut the anterior cord. No significant foraminal stenosis . C4-5: Posterior disc bulge and spondylosis with central disc osteophyte complex abutting and mildly compressing the anterior cord. No significant foraminal stenosis apparent. C5-6: Disc bulge with posterior spondylosis. Disc osteophyte complex abuts the anterior cord to the left of midline. Mild foraminal narrowing due to hypertrophic change. C6-7: Mild disc bulge and spondylosis efface the anterior subarachnoid space. No cord impingement. N o central canal or foraminal stenosis. C7-T1: Disc bulge and spondylosis efface the anterior subarachnoid space. Left foraminal stenosis du e to uncinate hypertrophy. The cervical cord signal appears normally preserved. IMPRESSION: Multilevel degenerative disc changes of the cervical spine as described above. Posterior disc and spo ndylytic changes impinge on the cord at levels as described above. POS: AGW
== END 2020-05-18 08:39 | disposition home or self-care (01) ==
LOC: BICMRI 08:38
PROVIDERS: ATTEND Family Medicine
DX: M47.22 Other spondylosis with radiculopathy, cervical region (principal); M50.10 Cervical disc disorder with radiculopathy, unspecified cervical region
CPT/HCPCS: 72141

== ENCOUNTER 2021-03-01 15:55 | Outpatient (CLI) | payer MEDICARE | END 2021-03-01 15:56 | disposition home or self-care (01) | LOC: BICMAMMO 15:55 | PROVIDERS: ATTEND Family Medicine | DX: Z12.31 Encounter for screening mammogram for malignant neoplasm of breast (principal) | CPT/HCPCS: 77063; 77067 ==

== ENCOUNTER 2021-11-15 15:31 | Outpatient (CLI) | payer MEDICARE | END 2021-11-15 15:32 | disposition home or self-care (01) | LOC: BICRAD 15:31 | PROVIDERS: ATTEND Urology | DX: N30.00 Acute cystitis without hematuria (principal) | CPT/HCPCS: 74018 ==

== ENCOUNTER 2022-03-02 14:49 | Outpatient (CLI) | payer MEDICARE | END 2022-03-02 14:50 | disposition home or self-care (01) | LOC: BICMAMMO 14:49 | PROVIDERS: ATTEND Family Medicine | DX: Z12.31 Encounter for screening mammogram for malignant neoplasm of breast (principal); Z91.89 Other specified personal risk factors, not elsewhere classified | CPT/HCPCS: 77063; 77067 ==

== ENCOUNTER 2023-03-13 15:01 | Outpatient (CLI) | payer MEDICARE | END 2023-03-13 15:02 | disposition home or self-care (01) | LOC: BICMAMMO 15:01 | PROVIDERS: ATTEND Family Medicine | DX: Z12.31 Encounter for screening mammogram for malignant neoplasm of breast (principal); Z13.820 Encounter for screening for osteoporosis; Z78.0 Asymptomatic menopausal state; Z91.89 Other specified personal risk factors, not elsewhere classified | CPT/HCPCS: 77063; 77067; 77080 ==

== ENCOUNTER 2024-04-08 07:58 | Outpatient (CLI) | payer MEDICARE | END 2024-04-08 07:59 | disposition home or self-care (01) | LOC: BICMAMMO 07:58 | PROVIDERS: ATTEND Family Medicine | DX: Z12.31 Encounter for screening mammogram for malignant neoplasm of breast (principal); Z91.89 Other specified personal risk factors, not elsewhere classified | CPT/HCPCS: 77063; 77067 ==